=== PATIENT | female | born 1980 | race African-American/Black ===

== ENCOUNTER → 2020-11-03 12:37 | Outpatient (BNVA) | payer MEDICAID, SELFPAY | PROVIDERS: PCP Internal Medicine; Visit Provider Physician Assistant | DX: E66.01 Morbid (severe) obesity due to excess calories (principal); Z68.42 Body mass index [BMI] 45.0-49.9, adult | CPT/HCPCS: 99202 ==

== ENCOUNTER 2020-11-25 09:36 | Outpatient (REF) | payer MEDICAID, SELFPAY ==
--- NOTE | ~2020-11-25 | XR_ITS ---
EXAMINATION: XR CHEST CLINICAL INFORMATION: Obesity COMPARISON: None TECHNIQUE: 2 views of the chest were obtained. FINDINGS: The cardiac and mediastinal contours are normal. The lungs are clear. There is no pleural effusion or pneumothorax. There are mild degenerative changes of the thoracic spine and curvature to the right. XR/XR chest 2V IMPRESSION: No evidence for acute disease in the chest.
--- NOTE | 2020-11-25 09:58 | ECG_ITS ---
Test Reason : MORBID OBESITY Blood Pressure : / mmHG Vent. Rate : 085 BPM Atrial Rate : 085 BPM P-R Int : 130 ms QRS Dur : 082 ms QT Int : 356 ms P-R-T Axes : 007 069 017 degrees QTc Int : 423 ms Normal sinus rhythm Normal ECG No previous ECGs available Referred By: Alanis Phillips Electronically Signed By:KM MCELROY
[2020-11-25 10:32] LABS: MANUAL DIFF FLAG NO
[2020-11-25 10:34] LABS: Basophils Percent Auto 0.5 % (0-2); Eosinophils Absolute Auto 0.3 X10*3/uL (0.0-0.4); Eosinophils Percent Auto 5.3 % (0-4); Hematocrit 36.2 % (37-47); Hemoglobin 11.8 g/dl (12.0-16.0); Imm Gran Abs Auto 0.01 X10*3/uL (0.00-0.03); Imm Gran Pct Auto 0.2 % (0.0-0.4); Lymphocytes Absolute Auto 2.3 X10*3/uL (1.2-4.9); Lymphocytes Percent Auto 40.9 % (20-40); Mean Corpuscular HGB Conc 32.6 g/dl (31.0-35.0); Mean Corpuscular Hemoglobin 29.9 pg (27.0-33.0); Mean Corpuscular Volume 91.6 fL (80-98); Mean Platelet Volume 10.6 fL (9.4-12.3); Monocytes Absolute Auto 0.5 X10*3/uL (0.1-1.2); Monocytes Percent Auto 8.5 % (2-11); Neutrophils Absolute Auto 2.5 X10*3/uL (2.0-8.3); Neutrophils Percent Auto 44.6 % (45-73); Platelet Count 328 X10*3/uL (160-400); Red Blood Count 3.95 X10*6/uL (4.20-5.50); White Blood Count 5.7 X10*3/uL (4.8-10.8)
[2020-11-25 11:00] LABS: Alanine Aminotransferase 15 U/L (0-31); Albumin Level 4.1 g/dL (3.5-5.0); Alkaline Phosphatase 74 U/L (39-117); Anion Gap 9 (12-20); Aspartate Amino Transferase 13 U/L (5-31); Bilirubin Total 0.6 mg/dL (0.0-1.0); Blood Urea Nitrogen 9 mg/dL (9-16); C Reactive Protein 1.24 mg/dL (< or = 0.50); Calcium 9.2 mg/dL (8.4-10.2); Carbon Dioxide 26 mmol/L (22-29); Chloride 108 mmol/L (96-108); Cholesterol 177 mg/dL; Estimated Glomerular Filt Rate > 60; Glucose Fasting 102 mg/dL (60-99); HDL Cholesterol 37 mg/dL; Iron 37 mcg/dL (30-160); LDL Cholesterol Calculated 124 mg/dl; Percent Iron Saturation 12 % (15-50); Potassium 4.3 mmol/L (3.3-5.1); Sodium 139 mmol/L (135-145); Total Iron Binding Capacity 299 mcg/dL (228-428); Total Protein 7.2 g/dL (6.5-8.0); Triglycerides 83 mg/dL; Unsaturated Iron Binding 262 ug/dL
[2020-11-25 11:17] LABS: TSH reflex Free T4 1.71 uIU/mL (0.32-4.0); Vitamin D 25-OH Total 19.3 ng/mL (>30)
[2020-11-25 11:47] LABS: Folate 18.5 ng/mL (> or = 4.0); Vitamin B12 504 pg/mL (200-900)
[2020-11-25 12:48] LABS: Ferritin 28 ng/mL (10-250)
[2020-11-25 14:33] LABS: Estimated Average Glucose 114 mg/dL; Hemoglobin A1c % 5.6 %
[2020-11-26 22:36] LABS: Insulin Level Total 22.8 uIU/mL
[2020-11-27 13:31] LABS: Calcium (PTHI) 9.2 mg/dL (8.6-10.2); PTHI 39 pg/mL (14-64)
[2020-11-28 20:31] LABS: Zinc 81 mcg/dL (60-130)
[2020-11-30 10:07] LABS: Vitamin B1 15 nmol/L (8-30)
== END 2020-11-25 09:37 | disposition home or self-care (01) ==
LOC: HO.XRAY 09:36
PROVIDERS: Visit Provider Physician Assistant
DX: E66.01 Morbid (severe) obesity due to excess calories (principal); Z68.42 Body mass index [BMI] 45.0-49.9, adult; R06.02 Shortness of breath; Z71.3 Dietary counseling and surveillance
CPT/HCPCS: 36415; 71046; 80053; 80061; 82306; 82607; 82728; 82746; 83036; 83525; 83540; 83970; 84425; 84443; 84630; 85025; 86140; 93005; 97802

== ENCOUNTER 2020-12-08 08:45 | Outpatient (REF) | payer MEDICAID, SELFPAY | END 2020-12-08 08:46 | disposition home or self-care (01) | LOC: HO.US 08:45 | PROVIDERS: Visit Provider Surgery | DX: Z13.89 Encounter for screening for other disorder (principal) ==

== ENCOUNTER → 2020-12-15 08:27 | Outpatient (BNVA) | payer MEDICAID, SELFPAY | PROVIDERS: Referring Provider Physician Assistant; Visit Provider Dietitian, Registered | DX: E66.01 Morbid (severe) obesity due to excess calories (principal); Z68.42 Body mass index [BMI] 45.0-49.9, adult | CPT/HCPCS: 97803 ==

== ENCOUNTER 2020-12-17 09:21 | Outpatient (REF) | payer MEDICAID, SELFPAY ==
[2020-12-19 12:20] LABS: H Pylori Breath Test Negative (Negative)
== END 2020-12-17 09:22 | disposition home or self-care (01) ==
LOC: HO.LNP 09:21
PROVIDERS: Physician Assistant; PCP Internal Medicine; Visit Provider Physician Assistant
DX: Z11.0 Encounter for screening for intestinal infectious diseases (principal); E66.01 Morbid (severe) obesity due to excess calories; Z68.42 Body mass index [BMI] 45.0-49.9, adult; Z71.3 Dietary counseling and surveillance
CPT/HCPCS: 83013; 99211; 99212

== ENCOUNTER 2021-01-02 08:13 | Outpatient (REF) | payer MEDICAID, SELFPAY ==
--- NOTE | ~2021-01-02 | FL_ITS ---
EXAMINATION: XR GI SERIES CLINICAL INFORMATION: Obesity COMPARISON: None TECHNIQUE: Upper GI was performed using thin and thick barium and effervescent granules FINDINGS: Esophageal motility is normal. No reflux or hernia is seen. Gastric emptying is slightly delayed. The stomach and duodenum are otherwise normal. No fold thickening, mass, ulcer or stricture is seen. FLUOROSCOPY TIME: 0.7 minutes DOSE AREA PRODUCT: 9.8 Brown per centimeter squared. 17 saved fluoroscopic images and 3 overhead images. FL/FL upper GI series IMPRESSION: Slightly delayed gastric emptying otherwise unremarkable exam.
--- NOTE | ~2021-01-02 | US_ITS ---
EXAMINATION: US COMPLETE ABDOMEN WITH LIVER ELASTOGRAPHY CLINICAL INFORMATION: Obesity COMPARISON: None. TECHNIQUE: Real-time imaging of the abdominal viscera. Noninvasive ultrasound liver fibrosis assessment is performed using Laurence ElastPQ point quantification shear wave elastography (pSWE) with a C5-2 MHz transducer. Multiple elastography samples are obtained. FINDINGS: PANCREAS: Normal. ABDOMINAL AORTA: The proximal, middle, and distal aortic segments are normal in caliber. INFERIOR VENA CAVA: Visualized portions are normal. LIVER: Liver echotexture is normal. The liver demonstrates normal size and contour.. No focal lesion or intrahepatic biliary duct dilatation. The right lobe measures 15 cm in length. The left lobe measures 12 cm in length. Portal flow is normal/hepatopedal Shear wave liver elastography median stiffness is 1.4 m/s (reference: normal median stiffness is 1.3 m/s or less). IQR/median stiffness to assess sampling precision is 0.24 (reference: good quality data set is IQR/median stiffness of 0.15 or less). GALLBLADDER: Normal. The gallbladder is physiologically distended without evidence of stones, sludge, polyps, wall thickening or pericholecystic fluid. COMMON BILE DUCT: Normal in caliber measuring 0.2 cm in diameter. RIGHT KIDNEY: Normal. No hydronephrosis. No renal calculi or focal parenchymal lesions. The kidney measures 10.5 cm in maximum dimension. LEFT KIDNEY: Normal. No hydronephrosis. No renal calculi or focal parenchymal lesions. The kidney measures 11 cm in maximum dimension. SPLEEN: Normal. The spleen measures 7.3 cm in maximum dimension. FREE FLUID: None. US/US abdomen comp w elastography IMPRESSION: 1. Impression: Unremarkable exam 2. Liver elastography: Slightly limited due to sampling error. In the absence of other known clinical signs, rules out compensated advanced chronic liver disease. REFERENCE: Society of [employer] in Ultrasound Liver Stiffness Thresholds (2020): LIVER STIFFNESS THRESHOLDS: *Liver Stiffness equal or less than 1.3 m/s: High probability of being normal. *Liver Stiffness less than 1.7 m/s: In the absence of other known clinical signs, rules out compensated advanced chronic liver disease. *Liver Stiffness 1.7-2.1 m/s: Suggestive of compensated advanced chronic liver disease but need further test for confirmation. *Liver Stiffness over 2.1 m/s: Rules in compensated advanced chronic liver disease. *Liver Stiffness over 2.4 m/s: Suggestive of clinically significant portal hypertension. QUALITY OF DATA SET: *IQR/Median value equal or less than 0.15 implies a quality data set. *IQR/Median value over 0.15 implies a poor quality data set. SIGNIFICANT CHANGE FROM PRIOR EXAM: Significant change if liver stiffness measurement is 10% or greater from prior exam. OTHER CONSIDERATIONS: The stage of liver fibrosis may be overestimated in the setting of acute hepatitis, liver inflammation, elevated liver function tests, hepatic vascular congestion, obstructive cholestasis, non-fasting state, and infiltrative diseases such as amyloidosis and lymphoma. In some patients with NAFLD, the liver stiffness thresholds for compensated advanced chronic liver disease may be lower. In causes other than viral hepatitis and NAFLD, liver stiffness thresholds are not well established.
== END 2021-01-02 08:14 | disposition home or self-care (01) ==
LOC: HO.US 08:13
PROVIDERS: PCP Internal Medicine; Visit Provider Surgery
DX: Z01.818 Encounter for other preprocedural examination (principal); E66.01 Morbid (severe) obesity due to excess calories; Z68.42 Body mass index [BMI] 45.0-49.9, adult; R06.02 Shortness of breath
CPT/HCPCS: 74240; 76705; 76981

== ENCOUNTER → 2021-01-07 11:22 | Outpatient (BNVA) | payer MEDICAID, SELFPAY | PROVIDERS: PCP Internal Medicine; Visit Provider Physician Assistant | DX: E66.01 Morbid (severe) obesity due to excess calories (principal); Z68.42 Body mass index [BMI] 45.0-49.9, adult | CPT/HCPCS: 99212 ==

== ENCOUNTER → 2021-01-12 08:10 | Outpatient (BNVA) | payer MEDICAID, SELFPAY | PROVIDERS: PCP Internal Medicine; Referring Provider Surgery; Visit Provider Dietitian, Registered ==

== ENCOUNTER → 2021-01-23 08:43 | Outpatient (BNVA) | payer MEDICAID, SELFPAY | PROVIDERS: PCP Internal Medicine; Referring Provider Surgery; Visit Provider Dietitian, Registered | DX: E66.01 Morbid (severe) obesity due to excess calories (principal) | CPT/HCPCS: 97803; Q3014 ==

== ENCOUNTER → 2021-03-06 08:48 | Outpatient (BNVA) | payer MEDICAID, SELFPAY | PROVIDERS: PCP Internal Medicine; Visit Provider Physician Assistant | DX: E66.01 Morbid (severe) obesity due to excess calories (principal); Z68.42 Body mass index [BMI] 45.0-49.9, adult | CPT/HCPCS: 99212 ==

== ENCOUNTER → 2021-03-31 07:58 | Outpatient (BNVA) | payer MEDICAID, SELFPAY | PROVIDERS: Visit Provider Physician Assistant ==